=== PATIENT | female | born 1945 | race Caucasian/White ===

== ENCOUNTER 2023-03-02 10:32 | Day surgery (SDC) | payer OTHER ==
[~2023-03-02] VITALS: Ht 160 cm; Wt 64.9 kg
[2023-03-02] MEDS ORDERED: MIDAZOLAM HCL 5 MG/5 ML VIAL ONE ×2 (11:42→13:11)
[2023-03-02] MEDS ORDERED: fentaNYL CITRATE/PF 100 MCG/2 ML AMP ONE ×2 (11:42→13:11)
[2023-03-02] MEDS ORDERED: DIPHENHYDRAMINE INJ 50 MG/ML VIAL ONE (13:11)
[2023-03-02 13:35] VITALS: O2SAT 97
[2023-03-02 15:52] VITALS: BP_SYST 159; PULSE 87; RESP 11
== END 2023-03-08 15:05 | disposition home or self-care (01) ==
LOC: SDS 10:32 → SMU 10:35 → SDS 03-08 15:05
PROVIDERS: ATTEND Surgery
DX: R19.4 Change in bowel habit (principal); K64.9 Unspecified hemorrhoids; I10 Essential (primary) hypertension; Z79.899 Other long term (current) drug therapy
CPT/HCPCS: 45378; 99152; 99153; G0378; J1200; J2250; J3010